=== PATIENT | female | born 1955 | race Caucasian/White ===

== ENCOUNTER 2016-09-19 18:37 | Inpatient (IN) | payer BC ==
[~2016-09-19] VITALS: Ht 175.3 cm; Wt 120.9 kg
--- NOTE | ~2016-09-19 | PR ---
[place], [place] PROGRESS NOTE NAME: DARIN SANDOVAL UNIT #: [id number] ROOM: [facility] DOCTOR: POLO PEREZ DO BIRTHDATE: [birth year] DOS: 09/20/2016 TIME: 7:30 a.m. INDICATION: Poor IV access. RESIDENT: Polo Perez D.O. ATTENDING: Lynn Reyna D.O. Timeout was completed, verifying the correct patient, procedure, site, and positioning, and special equipment if available. The patient was placed in dependent position appropriate for central line placement based on the vein to be cannulated. The patient's right neck was prepped and draped in a sterile fashion. 1% lidocaine was used to anesthetize the surrounding skin. A triple lumen catheter was introduced into the internal jugular vein using the Seldinger technique and under ultrasound guidance, the catheter was threaded smoothly over a guidewire and appropriate blood return was obtained. Each lumen of the catheter was evacuated of air and flushed with sterile saline. The catheter was then sutured in place to the skin and a sterile dressing applied. Chest x-ray was pending at the completion of the procedure. Estimated blood loss was less than 5 mL. The patient tolerated the procedure well and there were no complications. Malcolm Perez DO LYNN REYNA DO CM:PNTRANS [id number] POLO PEREZ DO 09/20/16 2213 interface
[~2016-09-19 18:37] MED LIST: AMBIEN CR12.5 MG PO; ATENOLOL50 MG PO; DAYPRO600 M1 PO; EFFEXOR XR150 M1 PO; HYCODAN/HYDROMET5 ML PO; HYDROCHLOROTHIA25 MG PO; MOTRIN800 MG PO; ZITHROMAX Z PA250 MG PO
[2016-09-19 18:57] VITALS: BP 144/88
[2016-09-19 19:36] LABS: BASO % 0.3 % (0.0-1.0); EOS % 0.3 % (1.0-4.0); HEMATOCRIT 40.6 % (37.0-47.0); HEMOGLOBIN 14.7 g/dl (12.0-16.0); IG # 0.1 10*3/uL (0.0-0.1); LYMPH # 1.7 10*3/uL (1.3-4.4); MEAN CELL VOLUME 88.8 fl (81.0-99.0); MEAN CORPUSCULAR HGB 32.2 pg (27.0-31.0); MEAN CORPUSCULAR HGB CONC 36.2 g/dl (33.0-37.0); MEAN PLATELET VOLUME 10.8 fl (9.6-12.3); MONO # 0.7 10*3/uL (0.1-1.0); MONO % 5.9 % (3.0-9.0); NEUT # 9.4 10*3/uL (2.3-7.9); NEUT % 78.9 % (47.0-73.0); PLATELET COUNT AUTOMATED 391 10*3/uL (130-400); RED BLOOD COUNT 4.57 10*6/uL (4.10-5.10); WHITE BLOOD COUNT 11.9 10*3/uL (4.8-10.8)
[2016-09-19 20:01] VITALS: BP 134/80
[2016-09-19 20:37] LABS: ALBUMIN 3.8 gm/dl (3.1-4.5); BILIRUBIN, TOTAL 0.7 mg/dl (0.2-1.0); TOTAL PROTEIN 8.4 gm/dL (6.4-8.2)
[2016-09-19 20:41] LABS: TROPONIN I 0.051 ng/ml (<0.045)
[2016-09-19 20:42] LABS: POTASSIUM 2.2 mmol/L (3.5-5.1)
[2016-09-19 21:38] VITALS: BP 142/76
[2016-09-19 21:45] VITALS: BP 159/80
[2016-09-19 22:10] LABS: BILIRUBIN NEGATIVE (NEGATIVE); BLOOD 1+ (NEGATIVE); CLARITY CLEAR (CLEAR); COLOR YELLOW (YELLOW); GLUCOSE 3+ (NEGATIVE); KETONE 2+ (NEGATIVE); LEUKO ESTERASE NEGATIVE (NEGATIVE); NITRITE NEGATIVE (NEGATIVE); PROTEIN NEGATIVE (NEGATIVE); SPECIFIC GRAVITY <= 1.005 (1.005-1.030); UROBILINOGEN 0.2 E.U./dl (0.2-1.0)
[2016-09-19] MEDS ORDERED: METFORMIN1000 MG PO (22:20)
[2016-09-19 22:22] LABS: BACTERIA TRACE; EPITHELIAL CELLS 45-50; WBC 0-2 wbc/hpf (0-5)
[2016-09-19 22:23] LABS: URINE REFLEX COMMENT YES (NO)
[2016-09-19] MEDS ORDERED: EFFEXOR XR75 MG PO (22:23)
[2016-09-19] MEDS ORDERED: VENLAFAXINE225 MG PO (23:15)
[2016-09-19 23:21] LABS: POTASSIUM 2.2 mmol/L (3.5-5.1)
[2016-09-20] VITALS: BP 133/78
[2016-09-20 00:40] LABS: POTASSIUM 2.5 mmol/L (3.5-5.1)
[2016-09-20 02:18] LABS: POTASSIUM 2.9 mmol/L (3.5-5.1)
[2016-09-20 02:21] LABS: TROPONIN I 0.047 ng/ml (<0.045)
[2016-09-20 04:00] VITALS: BP 139/72
[2016-09-20 04:41] LABS: POTASSIUM 3.4 mmol/L (3.5-5.1)
[2016-09-20 06:43] LABS: BASO % 0.3 % (0.0-1.0); EOS # 0.2 10*3/uL (0.0-0.4); EOS % 1.3 % (1.0-4.0); HEMATOCRIT 36.8 % (37.0-47.0); IG # 0.1 10*3/uL (0.0-0.1); LYMPH # 3.8 10*3/uL (1.3-4.4); LYMPH % 33.5 % (27.0-41.0); MEAN CELL VOLUME 89.3 fl (81.0-99.0); MEAN CORPUSCULAR HGB 31.6 pg (27.0-31.0); MEAN CORPUSCULAR HGB CONC 35.3 g/dl (33.0-37.0); MONO # 0.7 10*3/uL (0.1-1.0); MONO % 6.5 % (3.0-9.0); NEUT # 6.6 10*3/uL (2.3-7.9); NEUT % 57.9 % (47.0-73.0); PLATELET COUNT AUTOMATED 374 10*3/uL (130-400); RED BLOOD COUNT 4.12 10*6/uL (4.10-5.10); WHITE BLOOD COUNT 11.3 10*3/uL (4.8-10.8)
[2016-09-20 07:10] LABS: PROTHROMBIN TIME 10.1 SECONDS (9.0-12.4)
[2016-09-20 07:11] LABS: ALBUMIN 3.6 gm/dl (3.1-4.5); BILIRUBIN, TOTAL 0.4 mg/dl (0.2-1.0); FREE T4 1.35 ng/dl (0.76-1.46); MAGNESIUM 2.5 mg/dL (1.5-2.1); PHOSPHOROUS 1.7 mg/dL (2.5-4.9); POTASSIUM 2.5 mmol/L (3.5-5.1)
[2016-09-20 07:12] LABS: HEMOGLOBIN A1c 12.7 % (4.8-5.6)
[2016-09-20 07:17] LABS: THYROID STIM HORMONE (HS) 2.12 uIU/ml (0.358-4.75); TOTAL PROTEIN 7.2 gm/dL (6.4-8.2)
[2016-09-20 07:36] LABS: VITAMIN D, 25-HYDROXY 12.3 ng/mL (30-100)
[2016-09-20 07:37] LABS: FOLIC ACID 18.06 ng/mL (>5.38)
[2016-09-20 08:00] VITALS: BP 143/72
[2016-09-20 09:37] LABS: POTASSIUM 3.2 mmol/L (3.5-5.1)
[2016-09-20 11:38] LABS: POTASSIUM 3.6 mmol/L (3.5-5.1)
[2016-09-20 12:00] VITALS: BP 138/72
[2016-09-20 14:36] LABS: POTASSIUM 4.1 mmol/L (3.5-5.1)
[2016-09-20 16:00] VITALS: BP 126/73
[2016-09-20] MEDS ORDERED: TOUJEO300 U/ML SC (17:53)
[2016-09-20] MEDS ORDERED: VENLAFAXINE HYD75 M3 PO (17:54)
[2016-09-20] MEDS ORDERED: VENLAFAXINE HY150 M2 PO (17:55)
[2016-09-20] MEDS ORDERED: BENADRYL25 M2 PO (17:57)
[2016-09-20] MEDS ORDERED: ARIPIPRAZOLE2 MG PO (17:57)
[2016-09-20] MEDS ORDERED: BUSPAR5 MG PO (17:58)
[2016-09-20 20:00] VITALS: BP 111/53
[2016-09-21] VITALS: BP 126/60
[2016-09-21 04:00] VITALS: BP 130/60
[2016-09-21 05:50] LABS: BASO % 0.5 % (0.0-1.0); EOS # 0.1 10*3/uL (0.0-0.4); EOS % 1.8 % (1.0-4.0); HEMATOCRIT 31.6 % (37.0-47.0); IG # 0.1 10*3/uL (0.0-0.1); LYMPH # 3.7 10*3/uL (1.3-4.4); LYMPH % 47.9 % (27.0-41.0); MEAN CORPUSCULAR HGB 32.5 pg (27.0-31.0); MEAN CORPUSCULAR HGB CONC 34.5 g/dl (33.0-37.0); MEAN PLATELET VOLUME 10.4 fl (9.6-12.3); MONO # 0.6 10*3/uL (0.1-1.0); MONO % 7.8 % (3.0-9.0); NEUT # 3.1 10*3/uL (2.3-7.9); NEUT % 40.7 % (47.0-73.0); PLATELET COUNT AUTOMATED 265 10*3/uL (130-400); RED BLOOD COUNT 3.35 10*6/uL (4.10-5.10); RED CELL DISTRI WIDTH 12.5 % (0-14.5); WHITE BLOOD COUNT 7.7 10*3/uL (4.8-10.8)
[2016-09-21 05:51] LABS: ALBUMIN 2.8 gm/dl (3.1-4.5); BILIRUBIN, TOTAL 0.4 mg/dl (0.2-1.0); MAGNESIUM 2.2 mg/dL (1.5-2.1); PHOSPHOROUS 2.5 mg/dL (2.5-4.9); POTASSIUM 3.2 mmol/L (3.5-5.1)
[2016-09-21 05:54] LABS: HEMOGLOBIN 10.9 g/dl (12.0-16.0); MEAN CELL VOLUME 94.3 fl (81.0-99.0)
[2016-09-21 08:00] VITALS: BP 130/69
[2016-09-21 16:00] VITALS: BP 135/69
[2016-09-21 20:00] VITALS: BP 112/65
[2016-09-22] VITALS: BP 123/64
[2016-09-22 06:51] LABS: BASO % 0.4 % (0.0-1.0); EOS # 0.2 10*3/uL (0.0-0.4); HEMATOCRIT 31.4 % (37.0-47.0); HEMOGLOBIN 10.2 g/dl (12.0-16.0); IG # 0.1 10*3/uL (0.0-0.1); LYMPH # 4.4 10*3/uL (1.3-4.4); LYMPH % 49.6 % (27.0-41.0); MEAN CELL VOLUME 96.3 fl (81.0-99.0); MEAN CORPUSCULAR HGB 31.3 pg (27.0-31.0); MEAN CORPUSCULAR HGB CONC 32.5 g/dl (33.0-37.0); MEAN PLATELET VOLUME 10.7 fl (9.6-12.3); MONO # 0.5 10*3/uL (0.1-1.0); MONO % 5.9 % (3.0-9.0); NEUT # 3.7 10*3/uL (2.3-7.9); NEUT % 41.3 % (47.0-73.0); PLATELET COUNT AUTOMATED 262 10*3/uL (130-400); RED BLOOD COUNT 3.26 10*6/uL (4.10-5.10); RED CELL DISTRI WIDTH 12.5 % (0-14.5); WHITE BLOOD COUNT 8.9 10*3/uL (4.8-10.8)
[2016-09-22 07:20] LABS: ALBUMIN 2.8 gm/dl (3.1-4.5); MAGNESIUM 1.8 mg/dL (1.5-2.1); PHOSPHOROUS 1.6 mg/dL (2.5-4.9); POTASSIUM 3.4 mmol/L (3.5-5.1)
[2016-09-22 07:21] LABS: BILIRUBIN, TOTAL 0.2 mg/dl (0.2-1.0); TOTAL PROTEIN 5.9 gm/dL (6.4-8.2)
[2016-09-22 08:00] VITALS: BP 108/56
[2016-09-22] MEDS ORDERED: ARIPIPRAZOLE2 MG PO (10:32)
[2016-09-22] MEDS ORDERED: BUSPAR5 MG PO (10:32)
[2016-09-22] MEDS ORDERED: HUMALOG100 U/ML SC (10:32)
[2016-09-22] MEDS ORDERED: TOUJEO300 U/ML SC (10:32)
[2016-09-22] MEDS ORDERED: D-1000 185 MG-11 TAB PO (10:32)
[2016-09-22] MEDS ORDERED: VENLAFAXINE HY150 M2 PO (10:32)
[2016-09-22] MEDS ORDERED: VENLAFAXINE HYD75 M3 PO (10:32)
[2016-09-22] MEDS ORDERED: AMBIEN CR12.5 MG PO (10:32)
[2016-09-22] MEDS ORDERED: ATENOLOL50 M1 PO (10:32)
== END 2016-09-22 11:55 | disposition home or self-care (01) | DRG 637 ==
LOC: ED 18:37 → EDHOLD 20:51 → ICCU 21:06 → 4E 09-21 11:55
PROVIDERS: Internal Medicine; Student in an Organized Health Care Education/Training Program
DX: E13.10 Other specified diabetes mellitus with ketoacidosis without coma (principal); R65.11 Systemic inflammatory response syndrome (SIRS) of non-infectious origin with acute organ dysfunction; N17.0 Acute kidney failure with tubular necrosis; E87.1 Hypo-osmolality and hyponatremia; E44.0 Moderate protein-calorie malnutrition; E87.6 Hypokalemia; R82.4 Acetonuria; R31.29 Other microscopic hematuria; E87.8 Other disorders of electrolyte and fluid balance, not elsewhere classified; R00.0 Tachycardia, unspecified; R74.8 Abnormal levels of other serum enzymes; D72.825 Bandemia; D72.810 Lymphocytopenia; E66.01 Morbid (severe) obesity due to excess calories; D64.9 Anemia, unspecified; F32.9 Major depressive disorder, single episode, unspecified; E83.41 Hypermagnesemia; I10 Essential (primary) hypertension; E83.51 Hypocalcemia; Z79.4 Long term (current) use of insulin; Z68.36 Body mass index [BMI] 36.0-36.9, adult; Z90.711 Acquired absence of uterus with remaining cervical stump

== ENCOUNTER → 2019-10-28 | Outpatient (CLI) | payer MEDICARE ==
[~2019-10-28] MED LIST changes: +ARIPIPRAZOLE2 MG PO; +ATENOLOL50 M1 PO; +BENADRYL25 M2 PO; +BUSPAR5 MG PO; +D-1000 185 MG-11 TAB PO; +EFFEXOR XR75 MG PO; +HUMALOG100 U/ML SC; +METFORMIN1000 MG PO; +TOUJEO300 U/ML SC; +VENLAFAXINE HY150 M2 PO; +VENLAFAXINE HYD75 M3 PO; +VENLAFAXINE225 MG PO
== END | disposition home or self-care (01) ==
LOC: US 12:00
PROVIDERS: ATTEND Psychiatry & Neurology Psychiatry
DX: T81.49XA Infection following a procedure, other surgical site, initial encounter (principal); E13.51 Other specified diabetes mellitus with diabetic peripheral angiopathy without gangrene

== ENCOUNTER → 2019-12-01 | Outpatient (CLI) | payer MEDICARE | END | disposition home or self-care (01) | LOC: CARD 09:30 | PROVIDERS: ATTEND Internal Medicine Cardiovascular Disease | DX: Z01.818 Encounter for other preprocedural examination (principal); I07.1 Rheumatic tricuspid insufficiency; I10 Essential (primary) hypertension; E78.5 Hyperlipidemia, unspecified; E66.01 Morbid (severe) obesity due to excess calories; R94.31 Abnormal electrocardiogram [ECG] [EKG] ==

== ENCOUNTER → 2020-01-03 | Outpatient (CLI) | payer MEDICARE ==
[~2020-01-03] MED LIST changes: +CEFEPIME2 GM/100 M IV; +CLOPIDOGREL75 MG PO; +GLUCOPHAGE1000 MG PO; +HUMALOG100 UNIT/1 SC; +SIMVASTATIN40 MG PO; +Synthroid,Levo75 MCG PO; +TENORMIN50 MG PO; +VENLAFAXINE HYD75 MG PO; +ZESTORETIC 10-1 EACH PO
[2020-01-03 14:45] LABS: INTERNATIONAL NORM RATIO 0.9 (2.0-3.5)
[2020-01-03 14:48] LABS: ALBUMIN 3.9 gm/dl (3.1-4.5); CREATININE 1.15 mg/dL (0.55-1.02); POTASSIUM 4.3 mmol/L (3.5-5.1); TOTAL PROTEIN 7.8 gm/dL (6.4-8.2)
== END | disposition home or self-care (01) ==
LOC: COVID19 00:49 → LAB 00:49 → COVID19 13:00
PROVIDERS: ATTEND Orthopaedic Surgery
DX: Z01.818 Encounter for other preprocedural examination (principal); M65.112 Other infective (teno)synovitis, left shoulder; I25.2 Old myocardial infarction; Z20.828 Contact with and (suspected) exposure to other viral communicable diseases

== ENCOUNTER 2020-01-06 04:11 | Observation (INO) | payer MEDICARE ==
[2020-01-03 13:29] VITALS: BP 137/85
[~2020-01-06] VITALS: Ht 175.2 cm; Wt 113.4 kg
[2020-01-06] VITALS (9 sets, daily range): BP systolic 109–136; BP diastolic 43–64
[~2020-01-06 04:11] MED LIST changes: -CEFEPIME2 GM/100 M IV; -CLOPIDOGREL75 MG PO; -GLUCOPHAGE1000 MG PO; -HUMALOG100 UNIT/1 SC; -SIMVASTATIN40 MG PO; -Synthroid,Levo75 MCG PO; -TENORMIN50 MG PO; -VENLAFAXINE HYD75 MG PO; -ZESTORETIC 10-1 EACH PO
--- NOTE | 2020-01-06 11:15 | NUR ---
MSTime: 1115 A 64 year old FEMALE admitted to under services of LILA WHITTAKER DO. Pt. arrived via bed from [place]. Chief complaint: S/P DEBRIDEMENT LEFT ACHILLES TENDON. LILY PARKER
[2020-01-06] MEDS ORDERED: CLOPIDOGREL75 MG PO (11:28)
[2020-01-06] MEDS ORDERED: GLUCOPHAGE1000 MG PO (11:30)
[2020-01-06] MEDS ORDERED: VENLAFAXINE HYD75 MG PO (11:32)
[2020-01-06] MEDS ORDERED: TENORMIN50 MG PO (11:33)
[2020-01-06] MEDS ORDERED: AMBIEN CR12.5 MG PO (11:33)
[2020-01-06] MEDS ORDERED: Synthroid,Levo75 MCG PO (11:34)
[2020-01-06] MEDS ORDERED: ZESTORETIC 10-1 EACH PO (11:34)
[2020-01-06] MEDS ORDERED: SIMVASTATIN40 MG PO (11:36)
--- NOTE | 2020-01-06 11:45 | NUR ---
Occupational Therapy evaluation completed on 5 with full eval to follow. Precautions include NWB LLE,obesity,wound vac,IV UE, severe DJD both knees, poor stand tolerance, high complexity level 96477. Recommend OT per POC and SNF to enable safe return home with . Thank you. Shamika Koch OTR/L
--- NOTE | 2020-01-06 11:45 | NUR ---
PHYSICAL THERAPY Physical Therapy evaluation completed on 5th floor with full evaluation to follow. Recommend physical therapy per plan of care and SNF upon discharge. Precautions include NWB LLE,obesity,wound vac,IV UE, severe DJD both knees, poor stand tolerance. Thank you for this referral. Lizzie Norton PT
[2020-01-06] MEDS ORDERED: HUMALOG100 UNIT/1 SC (12:34)
--- NOTE | 2020-01-06 12:37 | NUR ---
'S OFFICE NOTIFIED OF CONSULT.
--- NOTE | 2020-01-06 14:31 | NUR ---
Supervisor Powdered [employer] in to talk to patient. Patient states lives at home with her . There are 0 steps in the home. There is 1 outside step. Physician: Vi Peter Pharmacy: [facility] Home health services: none Patient's level of ADLs: MINIMAL ASSIST Patient has working utilities: yes DME: cane Follow-up physician's appointment after d/c: will be made by the hospitalist nurse director upon discharge Does patient want to access PORTAL?: no Discharge plan discussed with patient. She lives at home with her . She is independent in her ADLs and ambulates with a cane. Discussed short term rehab and she refuses. Discussed home health care services and she is agreeable. When provided with a list of agencies she chose [facility]. Discussed possibility of home IV antibiotics and she states either herself or her would be able to learn how to administer. Discussed the possibility of the wound vac going home and she is agreeable. When medically stable she will be discharged to home. She states her will provide transportation on discharge. MANUEL MENDIETA
--- NOTE | 2020-01-06 16:23 | NUR ---
BSG 405. REPEAT TEST INITATED. BSG READING 389. WILL NOTIFY PHYSICIAN.
--- NOTE | 2020-01-06 17:47 | NUR ---
REPEAT BSG 361. WILL CONTINUE TO MONITOR.
[2020-01-07] VITALS: BP 108/50; BP 113/38
--- NOTE | 2020-01-07 01:22 | NUR ---
24 HR chart check completed.
[2020-01-07 07:54] LABS: BASO % 0.2 % (0.0-1.0); EOS % 0.2 % (1.0-4.0); LYMPH # 2.5 10*3/uL (1.3-4.4); LYMPH % 17.9 % (27.0-41.0); MEAN CELL VOLUME 99.1 fl (81.0-99.0); MEAN CORPUSCULAR HGB 31.8 pg (27.0-31.0); MEAN CORPUSCULAR HGB CONC 32.1 g/dl (33.0-37.0); MEAN PLATELET VOLUME 10.2 fl (9.6-12.3); MONO # 1.1 10*3/uL (0.1-1.0); MONO % 7.9 % (3.0-9.0); NEUT # 10.1 10*3/uL (2.3-7.9); PLATELET COUNT AUTOMATED 326 10*3/uL (130-400); RED BLOOD COUNT 3.33 10*6/uL (4.10-5.10); RED CELL DISTRI WIDTH 12.9 % (0-14.5); WHITE BLOOD COUNT 13.8 10*3/uL (4.8-10.8)
--- NOTE | 2020-01-07 08:20 | NUR ---
OT NOTE Pt was seen this A.M. 1:1 for 20 minute OT session. Upon arrival pt was supine in bed. Pt identified by name and and had no complaints at this time. Pt presented to therapy with wound vac to LLE which remained in place throughout the entire session. Prior to start of activity pt was able to verbalize and self recall her NWB to LLE status. Pt transferred supine to sit EOB with SBA. Sit to stand completed from bed level with CGA and use of w/w while maintaining NWB to LLE. Challenged pt's static standing tolerance needed for increased I in self care tasks and functional transfers. Pt was able to tolerate aprox 30 seconds at a time before sitting due to fatigue and stating "my knees just don't hold me" due to DJD in B knees. Second sit to stand completed from bed level with CGA and use of w/w followed by standing pivot from the EOB <> bedside commode with CGA and use of w/w while maintaining NWB to LLE with 100% compliance. Attempted to complete other tasks and pt declined stating "I have had enough for now." Pt transferred sit to supine with SBA. There she was left with call light in hand, tray table in place, and bed alarm activated for safety. Continue with rec D/C plan to SNF. DAVID Nunez/Linette
--- NOTE | 2020-01-07 09:00 | NUR ---
CM in to see patient. Discussed short term rehab and she refuses. Discussed home health care services and she is agreeable. When provided with a list of agencies she chose [facility]. She states Dr. Rae is supposed to take the wound vac off on Friday. When medically stable she will be discharged to home with [facility] services.
[2020-01-07 09:02] LABS: ALBUMIN 3.4 gm/dl (3.1-4.5); CREATININE 1.34 mg/dL (0.55-1.02); POTASSIUM 5.1 mmol/L (3.5-5.1); TOTAL PROTEIN 6.9 gm/dL (6.4-8.2)
--- NOTE | 2020-01-07 10:02 | NUR ---
PHYSICAL THERAPY TREATMENT TIME: OUT 08:18 AM 17 MINUTES TOTAL Patient presented to therapy in supine with head of bed elevated and bed aalrm on. Patient reports 0/10 pain in the L LE. PATIENT IS NWB ON THE L LE. Patient gives informed consent for treatment. Patient was identified by name and on wristband. Patient performed supine <> sitting on EOB with SBA. Patient sat on EOB with SBA. Patient STS <> EOB with SBA. Patient standing tolerance at Walker for 30 seconds x 2 with NWB on the L LE. Patient has wound vac on the L LE. Patient has audible crepitus in the bilateral knees upom standing. Patient maintained the NWB on the L LE in standing with SBA. Aron Ruiz present as witness to this treatment. Patient was fatigued and wanted to lie back down, which she did with SBA. Patient was left in supine in bed with head of bed elevated and call light within reach. Bed alarm on. Patient was 1:1 with this CASTING AND LOCKER ROOM SERVICER for 17 minutes total. TETE MCKNIGHT CASTING AND LOCKER ROOM SERVICER
--- NOTE | 2020-01-07 11:10 | NUR ---
OT NOTE Pt was seen this A.M. 1:1 for second OT session consisting of 13 minutes. Upon arrival pt was supine in bed. Pt identified by name and and had no complaints at this time. Pt transferred supine to sit EOB with SBA. Pt completed multiple sit to stand transfers from bed level with CGA and use of w/w. Challenged pt's static standing tolerance needed for increased I in self care tasks and functional transfers. Pt was able to tolerate aprox 45-60 seconds at a time before sitting due B knees feeling weak and fatigue. Pt declined any other tasks at this time. Pt transferred sit to supine with SBA. There she was left with call light in hand, tray table in place, and bed alarm activated for safety. Continue with rec D/C plan to SNF. DAVID Nunez/Linette
[2020-01-07 12:00] VITALS: BP 112/64
--- NOTE | 2020-01-07 12:08 | NUR ---
PHYSICAL THERAPY TREATMENT TIME: OUT 11:10 AM 15 MINUTES TOTAL Patient presented to therapy in supine for 2nd PT treatment of the day with report of L LE pain 0/10. Patient gives informed consent for treatment. Patient was identified by name and on wristband. Patient is NWB on the L LE. Patient has a wound vac in L LE. Patient completed supine <> sit EOB with SBA. Patient STS <> EOB with SBA. Patient standing tolerance 2 Xs with 1ST ATTEMPT) 1 min with SBA and 2ND ATTEMPT) 45 SEC with SBA. Patient Sit EOB > supine, again with SBA. Patient was left in supine in bed with head of bed elevated and bed alarm on. Call light within reach. Patient was 1:1 with this MANUFACTURING TEACHER for 12 minutes total. TETE MCKNIGHT MANUFACTURING TEACHER
--- NOTE | 2020-01-07 12:43 | NUR ---
OCCUPATIONAL THERAPY CO-SIGN I approve of the Occupational Therapy notes written above. TONJA BIANCHI OTR/Linette
--- NOTE | 2020-01-07 12:53 | NUR ---
PHYSICAL THERAPY CO-SIGN I approve of the Physical Therapy notes written above. Lizzie Norton PT
--- NOTE | 2020-01-07 13:03 | NUR ---
Discussed short term rehab and she refuses. Discussed home IV antibiotics and she is agreeable. She questioned the PICC line, explained the PICC line to the best of my knowledge. She said either herself or her will learn how to administer. Explained the antibiotics could be 3-4 weeks per the infectious disease physician. She states she will be discharged on Friday when Dr. Rae removes the wound vac. Explained she will not be discharged probably until the beginning of next week due to waiting to see what organism is growing in her cultures to make sure she is on the correct antibiotic. Explained her antibiotic prescription would be faxed to an infusion company called [facility]. At that point cost of the antibiotic would be discussed. She verbalized an understanding to the above.
[2020-01-07 13:09] LABS: ACID FAST SPEC PROCESSING Tissue Grinding (.)
--- NOTE | 2020-01-07 13:39 | NUR ---
PT OFF FOR FLOOR FOR PICC LINE PLACEMENT
--- NOTE | 2020-01-07 15:11 | NUR ---
Faxed home health referral to [facility] along with face to face and clinical
[2020-01-07 16:00] VITALS: BP 132/76
[2020-01-07 20:00] VITALS: BP 111/42
--- NOTE | 2020-01-07 21:24 | NUR ---
PT RESTING IN BED. RESP-EASY AND REGULAR. BSG-141, SEE EMAR. DENIES ANY PAIN. DRESSING TO LEFT FOOT D/I. CALL LIGHT IN REACH.
[2020-01-08] VITALS: BP 107/73
--- NOTE | 2020-01-08 00:10 | NUR ---
PT SLEEPING IN BED. RESP-EASY AND REGULAR. WOUND VAC IN PLACE. CALL LIGHT REACH. SEE SHIFT ASSESSMENT.
--- NOTE | 2020-01-08 04:00 | NUR ---
PT SLEEPING IN BED. RESP-EASY AND REGULAR. CALL LIGHT IN REACH.
--- NOTE | 2020-01-08 05:41 | NUR ---
PT RESTING IN BED. TOLERATED ROUTINE MED WITH NO PROBLEM. BSG-177, SEE EMAR. NO C/O AT THIS TIME. CALL LIGHT IN REACH.
[2020-01-08 06:53] LABS: BASO # 0.1 10*3/uL (0.0-0.1); BASO % 0.4 % (0.0-1.0); EOS # 0.2 10*3/uL (0.0-0.4); EOS % 1.5 % (1.0-4.0); HEMATOCRIT 34.2 % (37.0-47.0); LYMPH # 3.1 10*3/uL (1.3-4.4); LYMPH % 25.5 % (27.0-41.0); MEAN CORPUSCULAR HGB 32.2 pg (27.0-31.0); MEAN CORPUSCULAR HGB CONC 32.2 g/dl (33.0-37.0); MEAN PLATELET VOLUME 9.4 fl (9.6-12.3); MONO # 0.7 10*3/uL (0.1-1.0); MONO % 5.6 % (3.0-9.0); NEUT # 8.2 10*3/uL (2.3-7.9); NEUT % 66.5 % (47.0-73.0); PLATELET COUNT AUTOMATED 331 10*3/uL (130-400); RED BLOOD COUNT 3.42 10*6/uL (4.10-5.10); RED CELL DISTRI WIDTH 13.2 % (0-14.5); WHITE BLOOD COUNT 12.3 10*3/uL (4.8-10.8)
[2020-01-08 07:25] LABS: ALBUMIN 3.7 gm/dl (3.1-4.5); CREATININE 1.22 mg/dL (0.55-1.02); POTASSIUM 4.2 mmol/L (3.5-5.1); TOTAL PROTEIN 7.2 gm/dL (6.4-8.2)
[2020-01-08 08:00] VITALS: BP 127/55
[2020-01-08] MEDS ORDERED: CEFEPIME2 GM/100 M IV (10:01)
--- NOTE | 2020-01-08 10:14 | NUR ---
EULOGIO RECEIVED SCRIPT FROM [place]. EULOGIO CONTACTED [facility] THEIR OFFICE IS CLOSED UNTIL FRIDAY. SCALE TECHNICIAN WILL MAKE A COPY OF THE SCRIPT AND WILL PLACE BACK IN PATIENTS CHART.
--- NOTE | 2020-01-08 10:58 | NUR ---
PHYSICAL THERAPY attempted PT session today and she states she has been up multiple times this am and is going home today. Discussed d/c needs and she states she does have a W.C at home to use but does not have a FWW. She is not interested in SNF and wants to return to home with family support. She was issued a FWW today with the FWW being measured for proper fit. thank you kristi shaw PT
[2020-01-08 12:00] VITALS: BP 134/62
[2020-01-08 16:00] VITALS: BP 149/73
--- NOTE | 2020-01-08 19:30 | NUR ---
TOOK OVER CARE OF PT AT THIS TIME. PT RESTING IN BED. RESPIRATIONS EASY AND UNLABORED. WOUND VAC IN TACT TO LEFT FOOT. NO NEW ABNORMALITIES. NO COMPLAINTS VOICED. CALL LIGHT IN REACH.
[2020-01-09] VITALS: BP 125/62
--- NOTE | 2020-01-09 | NUR ---
PT DENIES NEEDING 0000 DOSE OF NORCO. PT STATES THAT SHE HAS NO PAIN AT ALL AT THIS TIME.
--- NOTE | 2020-01-09 06:37 | NUR ---
PT SLEEPING, AROUSES EASILY. BLOOD SUGAR OBTAINED, 212. APPRORIATE COVERAGE OF INSULIN GIVEN, PER ORDERS. WILL CONTINUE TO MONITOR.
[2020-01-09 08:00] VITALS: BP 130/87
--- NOTE | 2020-01-09 08:30 | NUR ---
RESTING IN BED WITH NO ACUTE DISTRESS NOTED. RESPIRATIONS EASY. VSS. WOUND VAC MAINTAINED LLE - DECLINES ROUTINE NORMO CLAIMING "NO PAIN." CALL LIGHT WITHIN REACH. NO VOICED COMPLAINTS
--- NOTE | 2020-01-09 09:14 | NUR ---
24 HR chart check completed.
--- NOTE | 2020-01-09 10:14 | NUR ---
DR REYES AND RESIDENT HERE TO ASSESS PATIENT NAD DISCUSS PLAN OF CARE
--- NOTE | 2020-01-09 15:30 | NUR ---
WOUND VAC REMOVED. INCISION WELL APROXIMATED WITH RADHA INTACT. PT CONSENTED, PICS OBTAINED AND SENT TO DR KEITH. NEW ORDERS RECEIVED TO LEAVE WUND VAC OFF, COVER WITH DRY DRESSING. PATIENT TOLERATED WELL.
[2020-01-09 16:00] VITALS: BP 116/68
--- NOTE | 2020-01-09 16:00 | NUR ---
CONTINUES TO DECLINE NORCO. DRESSING MAINTAINED TO LLE WITH ANKLE ELEVATED ON PILLOW.
--- NOTE | 2020-01-09 21:00 | NUR ---
PATIENT DID NOT WANT HER FINGERSTICK BGM TAKEN, REFUSED.
[2020-01-10] VITALS: BP 100/80
[2020-01-10 08:00] VITALS: BP 128/71
--- NOTE | 2020-01-10 08:26 | NUR ---
Received prescription for cefepime 2 gm IV every 12 hours. Faxed referral to [facility] and faxed updated notes to [facility]. Awaiting responses.
--- NOTE | 2020-01-10 09:00 | NUR ---
CM in to see patient. Discussed faxing her antibiotic prescription to [facility] and awaiting return call. Discussed referral being sent to [facility] last week and updated were sent this morning. Awaiting response to make sure they are able to accept patient. When medically stable and IV antibiotics are arranged she will be discharged to home. She is anxiously awaiting her discharge. CM will continue to follow for any discharge planning needs and informed the patient as soon as CM knows her coverage CM will let her know. She verbalized an understanding.
--- NOTE | 2020-01-10 09:21 | NUR ---
PHYSICAL THERAPY Patient was approached for therapy session and she was not wantng to do therapy at this time. She would like us to come back at at later time. Will check back later with patient. TETE MCKNIGHT RADIAL DRILL OPERATOR FOR PLASTIC
--- NOTE | 2020-01-10 10:11 | NUR ---
PHYSICAL THERAPY TREATMENT TIME: OUT 10:08 16 MINUTES TOTAL Patient presented to therapy in supine in bed with head of bed elevated and bed alarm not on. Patient reports L heel pain with boot on. Patient gives informed consent for treatment. Patient was identified by name and on wristband. Patient performed supine <> sit on EOB with SBA. Patient sat on EOB with SBA. Patient completed STS from EOB with SBA - CGA. Patient stood X 2 for 45 SECONDS each attempt with SBA. Patient maiantained NWB on the L LE with boot on. Patient sat on EOB and performd LAQs 2 x 10 reps each for strengthening the LEs in order to improve patient's functional mobility. Patient was left in supine in bed with head of bedleevated and call light within reach. Patient was 1:1 with this FIRER BOILER for 16 minutes total. TTEE MCKNIGHT FIRER BOILER
--- NOTE | 2020-01-10 10:15 | NUR ---
Received call from Kesha at [email or web address] re: [place] they are faxing to the [place] office.
--- NOTE | 2020-01-10 10:15 | NUR ---
OT NOTE Pt was seen this A.M. 1:1 for 15 minute OT session. Upon arrival pt was supine in bed. Pt identified by name and and had complaints of her L heel "rubbing" on the cam boot. Pt presented to therapy with cam boot on her LLE which remained in place throughout the entire session. Pt transferred supine to sit EOB with SBA. While sitting EOB pt donned R sock AL while using compensatory technique of bringing her leg up over knee level. Sit to stand completed from bed level with CGA and use of w/w for UE support. Challenged pt's static standing tolerance needed for increased I in self care tasks and functional transfers. Pt was able to tolerate aprox 60 seconds at a time before sitting due to fatigue and DJD in B knees. Pt then completed standing pivot from the EOB <> bedside commode with CGA and use of w/w while maintaining NWB to LLE with 100% compliance. Pt then transferred back into bed sit to supine with SBA. There she was left with call light in hand, tray table in place, and bed alarm activated for safety. Continue with POC as able. DAVID Nunez/Linette
--- NOTE | 2020-01-10 12:10 | NUR ---
OT NOTE Pt was seen this P.M. 1:1 for second OT session consisting of 15 minutes. Upon arrival pt was supine in bed. Pt identified by name and and had no complaints at this other than wanting to go home. Pt presented to therapy with cam boot to LLE which remained in place throughout the entire session. Pt transferred supine to sit EOB with SBA. While sitting EOB pt adjusted her R sock PA. Multiple sit to stand transfers completed from bed level with CGA and use of w/w. Challenged pt's static standing tolerance needed for increased I in self care tasks and functional transfers. Pt was able to tolerate aprox 2 minutes at a time while maintaining NWB to LLE before sitting due to fatigue. Attempted to complete other tasks towards pt's POC and pt declined. Pt transferred back into bed sit to supine with SBA. There she was left with call light in hand, tray table in place, and phone in reach. Continue with rec D/C plan to SNF. DAVID Nunez/Linette
--- NOTE | 2020-01-10 12:25 | NUR ---
PHYSICAL THERAPY TREATMENT TIME: OUT 12:20 12 MINUTES TOTAL Patient presented to therapy in supine this afternoon with head of bed elevated and bed alarm NOT on. Patient is NWB on the L LE. Patient has boot on L LE. Patient gives informed consent for treatment. Patient was identified by name and on wristband. Patient performed bed mobility SBA. STS from EOB with SBA. Patient stood for standing tolerance for 2 minutes at Walker and Close Supervision. Patient transferred back to supine in bed with SBA. Patient was left in supine in bed with head of bed elevated and and call light within reach. Patient was 1:1 with this TEACHER EMOTIONALLY IMPAIRED for 12 minutes total. TETE MCKNIGHT TEACHER EMOTIONALLY IMPAIRED
--- NOTE | 2020-01-10 13:50 | NUR ---
Spoke to Chetna at the [facility] [place] office. They have not received fax. Refaxed referral.
--- NOTE | 2020-01-10 14:02 | NUR ---
Discussed with patient re: home antibiotics. Explained clinical [facility]. Awaiting return call. She verbalized an understanding.
--- NOTE | 2020-01-10 15:20 | NUR ---
Spoke to Vi at [facility]. Patient is on the schedule for start of care of her IV antibiotics at 10am tomorrow.
--- NOTE | 2020-01-10 15:31 | NUR ---
Spoke to pharmacy. Maxipime could be given every 8 hours so the earliest the next dose could be given would be 8pm.
--- NOTE | 2020-01-10 15:40 | NUR ---
No return call from [facility]. Notified patient and nurse. Patient could have her Maxipime about 8pm per pharmacy if [facility] would call the patient with her cost information. Notified Vi at [facility].
[2020-01-10 16:00] VITALS: BP 121/61
[2020-01-11] VITALS: BP 112/48
--- NOTE | 2020-01-11 07:26 | NUR ---
Received voicemail from Chetna at [employer]. Patient doesn't have home IV coverage. The drug cost would be $24/day and the tractor crane operator would be $26/day. The patient would have approximately $50/day. Discussed with patient and she is not able to afford the cost. Discussed patient coming into the hospital twice a day for her IV antibiotics and she is agreeable. Spoke to pharmacy and the hospital has cefepime for outpatient. Faxed prescription to pharmacy and central scheduling. Patient states her will be here at 9am to pick her up. Will schedule with central scheduling as soon as they are available.
--- NOTE | 2020-01-11 07:34 | NUR ---
OT NOTE Attempted to see pt this A.M. for OT session and upon arrival pt was supine in bed. Pt stated "I am leavng at 9:00 so I am not doing any therapy. I am done." No treatment provided at this time. Will check with nurse and then check back with pt at a later time/date and continue with POC as able. DAVID Nunez/Linette
--- NOTE | 2020-01-11 07:52 | NUR ---
Spoke to central scheduling re setting up patient for IV cefepime outpatient. Patient will come in at 8am and 8pm daily for the next 4 weeks. Spoke to the nursing mains and service supervisor, Elaine Mesa. Patient will come to the 4th floor [facility]. Patient and nurse notified. Spoke to Dr. Ortiz re patient needing her am dose of cefepime prior to discharge. Spoke to pharmacy patient is able to have her cefepime 8 hours from the last dose at midnight. Notified Vi At [facility].
[2020-01-11 08:00] VITALS: BP 122/52
--- NOTE | 2020-01-11 08:00 | NUR ---
ASSESSMENT COMPLETE SEE FLOWSHEET. REFUSED PAIN MEDS. WEATHER CLERK STATED THAT PT IS GOING TO BE DISCHARGED AND TO GIVE ABT EARLY BECAUSE SHE NEEDS TO COME BACK THIS EVENING AND GET 2ND DOSE. AWAITING D/C ORDERS. CALL LIGHT IN REACH.
--- NOTE | 2020-01-11 08:43 | NUR ---
PHYSICAL THERAPY Patient declined treatment because she is going home at 9:00 AM and doesn't want to do therapy this morning. TETE MCKNIGHT BUSINESS APPLICATIONS MANAGER
--- NOTE | 2020-01-11 09:00 | NUR ---
Spoke to Chetna at [employer] Informed patient will be coming into the hospital twice daily for her IV antibiotics because she is not able to afford the $50/day.
--- NOTE | 2020-01-11 10:51 | NUR ---
Faxed face to face to [facility] and notified Vi patient will not need home IV antibiotics.
--- NOTE | 2020-01-11 11:51 | NUR ---
DISCHARGE INSRUCTIONS GIVEN. PT VERBALIZED UNDERSTANDING. WAITING FOR RIDE.
--- NOTE | 2020-01-12 07:50 | NUR ---
OCCUPATIONAL THERAPY CO-SIGN I approve of the Occupational Therapy notes written above. TONJA BIANCHI OTR/Linette
--- NOTE | 2020-01-12 08:00 | NUR ---
PHYSICAL THERAPY CO-SIGN I approve of the Physical Therapy notes written above. Lizzie Norton PT
--- NOTE | 2020-01-14 06:58 | NUR ---
Received message from Vi at [facility] regarding referral. She states they have tried to contact patient 6 times and patient has not answered or returned any call. They are cancelling the referral.
[2020-03-01 10:11] LABS: ACID FAST CULTURE Negative (.)
== END 2020-01-11 11:51 | disposition home or self-care (01) ==
LOC: SDC 04:11 → 5E 09:10 → SDC 14:00 → 5E 16:35
PROVIDERS: Radiology Diagnostic Radiology; Registered Nurse; ADMIT Internal Medicine; ATTEND Internal Medicine
DX: M65.10 Other infective (teno)synovitis, unspecified site (principal); N17.0 Acute kidney failure with tubular necrosis; E44.0 Moderate protein-calorie malnutrition; E11.65 Type 2 diabetes mellitus with hyperglycemia; I10 Essential (primary) hypertension; E03.9 Hypothyroidism, unspecified; I25.10 Atherosclerotic heart disease of native coronary artery without angina pectoris; E66.01 Morbid (severe) obesity due to excess calories; D72.829 Elevated white blood cell count, unspecified; N18.31 Chronic kidney disease, stage 3a; E87.8 Other disorders of electrolyte and fluid balance, not elsewhere classified; F32.9 Major depressive disorder, single episode, unspecified; I12.9 Hypertensive chronic kidney disease with stage 1 through stage 4 chronic kidney disease, or unspecified chronic kidney disease; N18.9 Chronic kidney disease, unspecified

== ENCOUNTER 2020-06-19 17:29 | Emergency (ER) | payer MEDICARE ==
[~2020-06-19 17:29] MED LIST changes: +CEFEPIME2 GM/100 M IV; +CLOPIDOGREL75 MG PO; +GLUCOPHAGE1000 MG PO; +HUMALOG100 UNIT/1 SC; +SIMVASTATIN40 MG PO; +Synthroid,Levo75 MCG PO; +TENORMIN50 MG PO; +VENLAFAXINE HYD75 MG PO; +ZESTORETIC 10-1 EACH PO
[2020-06-19] MEDS ORDERED: CEPHALEXIN500 M1 PO (20:10)
== END 2020-06-19 20:25 | disposition home or self-care (01) ==
LOC: ED 17:29
DX: S81.812A Laceration without foreign body, left lower leg, initial encounter (principal); I10 Essential (primary) hypertension; I25.10 Atherosclerotic heart disease of native coronary artery without angina pectoris; E11.9 Type 2 diabetes mellitus without complications; K21.9 Gastro-esophageal reflux disease without esophagitis; W22.8XXA Striking against or struck by other objects, initial encounter; Y93.89 Activity, other specified; Y92.89 Other specified places as the place of occurrence of the external cause; Y99.8 Other external cause status

== ENCOUNTER 2020-07-03 17:20 | Emergency (ER) | payer MEDICARE ==
[~2020-07-03] VITALS: Wt 113.4 kg
[~2020-07-03 17:20] MED LIST changes: +CEPHALEXIN500 M1 PO
== END 2020-07-03 18:55 | disposition home or self-care (01) ==
LOC: ED 17:20
DX: S81.812D Laceration without foreign body, left lower leg, subsequent encounter (principal); Z48.02 Encounter for removal of sutures; Z79.899 Other long term (current) drug therapy; Z79.84 Long term (current) use of oral hypoglycemic drugs; Z95.818 Presence of other cardiac implants and grafts; Z90.711 Acquired absence of uterus with remaining cervical stump; X58.XXXD Exposure to other specified factors, subsequent encounter

== ENCOUNTER → 2021-05-10 | Outpatient (CLI) | payer MEDICARE ==
[~2021-05-10] MED LIST changes: +ASPIRIN81 M1 PO; +EFFEXOR XR75 M1 PO; +HYDROCHLOROTHIA25 M1 PO; +TENORMIN25 M1 PO; -TENORMIN50 MG PO; +ZOCOR40 MG PO
== END | disposition home or self-care (01) ==
LOC: CARD 00:03
PROVIDERS: ATTEND Internal Medicine Cardiovascular Disease
DX: I25.10 Atherosclerotic heart disease of native coronary artery without angina pectoris (principal); I10 Essential (primary) hypertension; R93.89 Abnormal findings on diagnostic imaging of other specified body structures; R93.1 Abnormal findings on diagnostic imaging of heart and coronary circulation; E78.5 Hyperlipidemia, unspecified; Z95.5 Presence of coronary angioplasty implant and graft